=== PATIENT | female | born 1980 | race Caucasian/White ===

== ENCOUNTER 2025-01-23 10:52 | Emergency (ER) | payer MEDICARE, MEDICAID, SELFPAY ==
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
[2025-01-23 11:09] VITALS: BP 92/56; PULSE 92; RESP 18; TEMP 36.6; O2SAT 98; BMI 32.4
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
[2025-01-23 14:23] LABS: MANUAL DIFF FLAG NO
[2025-01-23 14:25] LABS: Hematocrit 39.3 % (37.0-47.0); Hemoglobin 13.3 g/dl (12.0-16.0); Imm Gran Abs Auto 0.04 X10*3/uL (0.00-0.03); Imm Gran Pct Auto 0.4 % (0.0-0.4); Lymphocytes Absolute Auto 2.7 X10*3/uL (1.2-4.9); Mean Corpuscular HGB Conc 33.8 g/dl (31.0-35.0); Mean Corpuscular Hemoglobin 31.1 pg (27.0-33.0); Mean Corpuscular Volume 92.0 fL (80.0-98.0); NRBC Abs Auto 0.000 X10*3/uL (0.0-0.012); NRBC Pct Auto 0.0 /100WBC (0.0-0.2); Platelet Count 327 X10*3/uL (160-400); Red Blood Count 4.27 X10*6/uL (4.20-5.50); White Blood Count 10.6 X10*3/uL (4.8-10.8)
[2025-01-23 14:27] VITALS: BP 91/59; PULSE 73; RESP 18; TEMP 36.5; O2SAT 96
[2025-01-23 14:41] LABS: Anion Gap 8 (12-20); Blood Urea Nitrogen 19 mg/dL (9-16); Calcium 8.5 mg/dL (8.4-10.2); Carbon Dioxide 23 mmol/L (22-29); Chloride 113 mmol/L (96-108); Creatinine Clr Calc Pharmacy 112.7; Estimated Glomerular Filt Rate > 60; Potassium 3.8 mmol/L (3.3-5.1); Sodium 140 mmol/L (135-145)
[2025-01-23] MEDS: Lidocaine 4 % Patch ADH..PATCH 1 PATCH TRANSDERMA (14:44)
--- NOTE | 2025-01-23 14:48 | PC.NURSE ---
Called to room by pt, pt admits she removed c-collar herself, pt requests to go home, will contact provider
[2025-01-23] MEDS: iohexoL 350 MG/ML 100 ML INFUS..BTL IV (15:07)
[2025-01-23 16:00] VITALS: BP 91/59; PULSE 73; RESP 18; TEMP 36.5; O2SAT 96
== END 2025-01-23 16:00 | disposition left against medical advice (07) ==
PROVIDERS: Physician Assistant Medical; Emergency Provider Emergency Medicine; PCP Family Medicine
DX: Z04.1 Encounter for examination and observation following transport accident (principal); Z53.29 Procedure and treatment not carried out because of patient's decision for other reasons; M54.50 Low back pain, unspecified; V49.9XXA Car occupant (driver) (passenger) injured in unspecified traffic accident, initial encounter; Y92.410 Unspecified street and highway as the place of occurrence of the external cause; Y93.9 Activity, unspecified
CPT/HCPCS: 36415; 70450; 71260; 72125; 74177; 80048; 84702; 85025; 96361; 96374; 96375; 99285; J1885; Q9967

== ENCOUNTER → 2025-01-23 11:45 | Outpatient (BNV) | payer OTHER, SELFPAY | PROVIDERS: Emergency Provider Emergency Medicine; PCP Family Medicine; Visit Provider Radiology Diagnostic Radiology | DX: Z04.3 Encounter for examination and observation following other accident (principal) | CPT/HCPCS: 70450; 71260; 72125; 74177 ==